=== PATIENT | female | born 1990 | race Two or more races ===

== ENCOUNTER 2018-09-19 02:19 | Emergency (ER) | payer OTHER ==
[~2018-09-19] VITALS: Ht 160 cm; Wt 70.3 kg
[2018-09-19] MEDS ORDERED: DICLOFENAC POTA50 MG (02:31)
[2018-09-19] MEDS ORDERED: CIPRO500 MG PO (02:31)
[2018-09-19] MEDS ORDERED: MUPIROCIN22 GM (02:32)
[2018-09-19] MEDS ORDERED: INTESTINEX680 M1 PO (04:22)
[2018-09-19] MEDS ORDERED: CLINDAMYCIN HC150 MG PO (04:22)
== END 2018-09-19 04:50 | disposition home or self-care (01) ==
LOC: ER 02:19
DX: L02.214 Cutaneous abscess of groin (principal)